=== PATIENT | male | born 1995 | race American Indian/Alaskan Native ===

== ENCOUNTER 2016-12-21 14:10 | Emergency (ER) | payer SELFPAY ==
[2016-12-21 15:19] VITALS: BP 138/76
--- NOTE | 2016-12-21 16:39 | Emergency Department Report ---
ED Male HPI - General Chief complaint: Urogenital-Male Stated complaint: BURN WHEN URINATING/DISCHARGE Time Seen by Provider: 12/21/16 16:33 Source: patient Mode of arrival: Ambulatory Limitations: No Limitations - History of Present Illness Initial comments: Patient here reports that he has penile discharge and burning with urination 3 days. He denies any blood in his urine. Denies any abdominal or back pain. Denies any fever or chills. Denies any nausea vomiting. Patient admits to having unprotected sex and has no contact with the patient that he has sex. Patient is requesting to be treated for STD. He said the discharge is white and has a order to rule out. Denies any testicular pain or swelling. Denies any penile rash or lesions. MD Complaint: penile discharge, dysuria Onset/Timin -: days(s) Location: penis Radiation: none Severity scale (0 -10): 8 Quality: burning Consistency: intermittent Improves with: none Worsens with: urination new sexual partner discharge, dysuria. denies: swelling, mass, rash, urinary retention, blood in urine, fever, nausea/vomiting, incontinence - Related Data Sexually active: Yes Previous Rx's Medication Instructions Recorded Last Taken Type Ciprofloxacin HCl [Ciprofloxacin 500 mg PO Q12HR #20 tab 12/21/16 Unknown Rx TAB] Allergies Allergy/AdvReac Type Severity Reaction Status Date / Time No Known Allergies Allergy Unverified 12/21/16 15:20 ED Review of Systems ROS: Stated complaint: BURN WHEN URINATING/DISCHARGE Other details as noted in HPI Comment: All other systems reviewed and negative Constitutional: denies: chills, fever Eyes: denies: eye discharge ENT: denies: throat pain Respiratory: no symptoms reported Cardiovascular: denies: chest pain, palpitations, edema, syncope Gastrointestinal: denies: abdominal pain, nausea, vomiting, diarrhea Genitourinary: dysuria, discharge. denies: urgency, frequency, hematuria, testicular pain, testicular mass Musculoskeletal: denies: back pain, arthralgia Skin: denies: rash Neurological: denies: headache ED Past Medical Hx - Past Medical History Previous Medical History?: No - Surgical History Past Surgical History?: No - Family History Family history: no significant - Social History Smoking Status: Never Smoker Substance Use Type: None - Medications Home Medications: Home Medications Medication Instructions Recorded Confirmed Last Taken Type Ciprofloxacin HCl [Ciprofloxacin 500 mg PO Q12HR #20 tab 12/21/16 Unknown Rx TAB] ED Physical Exam - General Limitations: No Limitations General appearance: alert, in no apparent distress - Head Head exam: Present: atraumatic, normocephalic, normal inspection - Eye Eye exam: Present: normal appearance, PERRL, EOMI Pupils: Present: normal accommodation - ENT ENT exam: Present: normal exam, normal orophraynx, mucous membranes moist - Neck Neck exam: Present: normal inspection, full ROM. Absent: tenderness, meningismus, lymphadenopathy - Respiratory Respiratory exam: Present: normal lung sounds bilaterally. Absent: respiratory distress, chest wall tenderness - Cardiovascular Cardiovascular Exam: Present: normal rhythm, bradycardia (asymptomatic sinus bradycardia), normal heart sounds - GI/Abdominal GI/Abdominal exam: Present: soft, normal bowel sounds. Absent: distended, tenderness, guarding, rebound, rigid - exam: Present: normal inspection, urethral discharge, circumcision. Absent: testicular tenderness, scrotal swelling, vertical testicular lie External exam: Present: normal external exam. Absent: erythema, swelling, lesions, lacerations, ecchymosis, bleeding - Extremities Exam Extremities exam: Present: normal inspection, full ROM, normal capillary refill. Absent: tenderness - Back Exam Back exam: Present: normal inspection, full ROM. Absent: tenderness, CVA tenderness (R), CVA tenderness (L), muscle spasm, paraspinal tenderness, vertebral tenderness, rash noted - Neurological Exam Neurological exam: Present: alert, oriented X3, normal gait, reflexes normal. Absent: motor sensory deficit - Psychiatric Psychiatric exam: Present: normal affect, normal mood - Skin Skin exam: Present: warm, dry, intact, normal color. Absent: rash ED Course Vital Signs 12/21/16 15:18 Temperature 98.1 F Pulse Rate 56 L Respiratory 17 Rate Blood Pressure 138/76 O2 Sat by Pulse 100 Oximetry - Reevaluation(s) Reevaluation #1: 12/21/16 18:36 Patient received treatment for STD and emergency room to include Rocephin 1 g IM to cover her UTI and gonorrhea, Zithromax 1 g by mouth to cover chlamydia and Flagyl 2 g by mouth to cover her Trichomonas. He had no adverse reaction. ED Medical Decision Making - Lab Data Lab Results 12/21/16 Range/Units Unknown Urine Color Yellow (Yellow) Urine Turbidity Clear (Clear) Urine pH 6.0 (5.0-7.0) Ur Specific [place] 1.017 (1.003-1.030) Urine Protein <15 mg/dl (Negative) mg/dL Urine Glucose (UA) Neg (Negative) mg/dL Urine Ketones Neg (Negative) mg/dL Urine Blood Neg (Negative) Urine Nitrite Neg (Negative) Urine Bilirubin Neg (Negative) Urine Urobilinogen < 2.0 (<2.0) mg/dL Ur Leukocyte Esterase Mod (Negative) Urine WBC (Auto) 53.0 H (0.0-6.0) /HPF Urine RBC (Auto) 6.0 (0.0-6.0) /HPF U Epithel Cells (Auto) < 1.0 (0-13.0) /HPF Calcium Oxalate Crystal 1+ Urine Mucus Few /HPF Urine culture pending - Medical Decision Making ED course: Patient presents to emergency room with complaints of penile discharge after having unprotected sex with new partner. He is also complaining of urinary burning. Upon evaluating urine results, I discussed the patient that he has a bladder infection and will be treated with antibiotic. I also explained to him he'll be treated empirically for STDs as his request. Patient was given Rocephin 1 g IM, Zithromax 1 g by mouth and Flagyl 2 g. Emergency room. I encouraged patient to practice safe sex and to avoid from drinking all quadrant over the next week as medication given for STD has negative interaction with alcohol. I also discussed them that he needs to refrain from having sex 100 and extend days and follow up at [facility] to have STD testing done. Patient was understanding of discharge instruction discharged home with prescription for ciprofloxacin which I told Laurie Pete at [facility]. Critical care attestation.: If time is entered above; I have spent that time in minutes in the direct care of this critically ill patient, excluding procedure time. ED Disposition Clinical Impression: Concern about STD in male without diagnosis, Penile discharge, Dysuria, Acute cystitis without hematuria Disposition: DISCHARGED TO HOME OR SELFCARE Is pt being admited?: No Does the pt Need Aspirin: No Condition: Stable Instructions: Safe Sex (ED), Sexually Transmitted Diseases (ED), Urinary Tract Infection in Men (ED), Dysuria (ED) Additional Instructions: Please refrain from having sex for the next 10 days and follow up with [facility] for STD checks. Please tonight drinking alcohol in the next week as medication that was given to to treat STD has negative interaction with alcohol. Please practice safe sex. Please take antibiotic as prescribed for bladder infection Please your partner know that you were treated in emergency room for sexually transmitted disease. Prescriptions: Ciprofloxacin HCl [Ciprofloxacin TAB] 500 mg PO Q12HR #20 tab Referrals: PRIMARY CARE, [Primary Care Provider] - 3-5 Days [facility] Depart [Outside] - 3-5 Days Forms: Work/School Release Form(ED)
[2016-12-21 17:07] LABS: Bilirubin,Urine NEG (Negative); Blood,Urine NEG (Negative); Ketones,Urine NEG (Negative); Leukocyte Esterase,Urine MOD (Negative); Mucus,Urine FEW /HPF; Nitrite,Urine NEG (Negative); Protein,Urine <15 mg/dL mg/dL (Negative); Urobilinogen,Urine < 2.0 mg/dL (<2.0)
[2016-12-21] MEDS ORDERED: ROCEPHIN IM STA (17:49)
[2016-12-21] MEDS ORDERED: XYLOCAINE 1% MPF 5 mL INFILTRATI ONE (17:50)
[2016-12-21] MEDS ORDERED: FLAGYL PO ONE (17:50)
[2016-12-21] MEDS ORDERED: ZITHROMAX PO ONE (17:50)
== END 2016-12-21 18:52 | disposition home or self-care (01) ==
LOC: ED 14:10
DX: N30.00 Acute cystitis without hematuria (principal); R36.9 Urethral discharge, unspecified; R30.0 Dysuria
CPT/HCPCS: 87086; 96372; 99283; J0696